=== PATIENT | male | born 1965 ===

== ENCOUNTER 2018-03-21 19:11 | Inpatient (IN) | payer MEDICAID, OTHER ==
[2018-03-21 19:12] VITALS: BMI 22.8
[2018-03-21 19:59] LABS: BASO # 0.1 K/uL (0.0-0.2); BASO % 1.8 % (0.0-2.0); EOS # 0.1 K/uL (0.0-0.7); EOS % 2.5 % (0.0-4.0); HEMOGLOBIN 11.5 g/dL (12.0-18.0); LYMPH # 1.1 K/uL (1.0-4.3); LYMPH % 26.1 % (20.0-40.0); MEAN CORPUSCULAR HEMOGLOBIN 31.5 pg (27.0-31.0); MEAN CORPUSCULAR HGB CONC 33.3 g/dL (33.0-37.0); MEAN PLATELET VOLUME 7.1 fL (7.2-11.7); MONO # 0.7 K/uL (0.0-0.8); MONO % 16.3 % (0.0-10.0); NEUT # 2.2 K/uL (1.8-7.0); NEUT % 53.3 % (50.0-75.0); NRBC % 0.1 % (0.0-2.0); RBC 3.65 Mil/uL (4.40-5.90); RED CELL DISTRIBUTION WIDTH 14.1 % (11.5-14.5); WHITE BLOOD COUNT 4.1 K/uL (4.8-10.8)
[2018-03-21 20:00] LABS: MEAN CELL VOLUME 94.7 fL (80.0-94.0)
[2018-03-21 20:17] LABS: SQUAMOUS EPITHIAL < 1 /hpf (0-5); URINE BACTERIA OCC (<OCC); URINE BILIRUBIN NEGATIVE (NEGATIVE); URINE CLARITY Clear (Clear); URINE COLOR Yellow (YELLOW); URINE GLUCOSE (UA) NORMAL (Normal); URINE HYALINE CAST 0-2 /lpf (0-2); URINE LEUKOCYTE ESTERASE NEG Leu/uL (Negative); URINE PROTEIN 3+ mg/dL (NEGATIVE); URINE UROBILINOGEN NORMAL mg/dL (0.2-1.0)
[2018-03-21 20:18] LABS: URINE BLOOD TRACE (NEGATIVE)
[2018-03-21 20:20] LABS: ALB/GLOB RATIO 1.2 (1.0-2.1); ALBUMIN 3.8 g/dL (3.5-5.0); CALCIUM 8.5 mg/dl (8.6-10.4)
[2018-03-21 20:38] LABS: BARBITURATES, UR NEGATIVE (NEGATIVE); BENZODIAZEPINES, UR NEGATIVE (NEGATIVE); OPIATES, UR NEGATIVE (NEGATIVE); PHENCYCLIDINE, UR NEGATIVE (NEGATIVE)
--- NOTE | 2018-03-21 22:52 | C.PDOC ---
History Of Present Illness 52 year old male presents to the ER with ETOH abuse and requesting detox. Patient is well known to this hospital system for ETOH abuse and offers no complaints at this time. He admits to drinking heavily today. Denies suicidal ideation or homicidal ideation. Hx may be unreliable due to intoxication. <Poonam Modi - Last Filed: 03/24/18 16:02> <Diane Alberts - Last Filed: 03/22/18 01:01> History Per: Patient History/Exam Limitations: no limitations Onset/Duration Of Symptoms: Days Current Symptoms Are (Timing): Still Present Suicide/Self Injury Attempted (Context): None Modifying Factor(s): Alcohol Involuntary Hold By: None Recent travel outside of the [place]: No <Poonam Modi - Last Filed: 03/24/18 16:02> Time Seen by Provider: 03/21/18 19:29 Chief Complaint (Nursing): Substance Abuse Past Medical History Vital Signs: Last Vital Signs Temp 98.1 F 03/21/18 19:26 Pulse 93 H 03/21/18 21:06 Resp 20 03/21/18 19:26 BP 130/78 03/21/18 21:06 Pulse Ox 95 03/21/18 22:58 - [facility] Procedures GROUP PSYCHOTHERAPY (05/10/17) INDIV PSYCHOTHERAPY FOR SUBSTANCE ABUSE, COGNITIV BEHAVIORAL (05/10/17) INDIVIDUAL PSYCHOTHERAPY, COGNITIVE-BEHAVIORAL (05/10/17) INJECT/INFUSE NEC (06/27/12) INTRODUCE LOCAL ANESTH IN PERIPH NRV, PLEXI, PERC (05/23/17) INTRODUCTION OF SERUM/TOX/VACCINE INTO MUSCLE, PERC APPROACH (06/30/16) REPAIR LEFT UPPER EYELID, EXTERNAL APPROACH (05/23/17) REPAIR RIGHT ANKLE BURSA AND LIGAMENT, OPEN APPROACH (05/23/17) REPOSITION RIGHT ANKLE JOINT WITH INT FIX, OPEN APPROACH (05/23/17) REPOSITION RIGHT FIBULA WITH INT FIX, OPEN APPROACH (05/23/17) REPOSITION RIGHT FIBULA, EXTERNAL APPROACH (05/23/17) <Diane Alberts - Last Filed: 03/22/18 01:01> Reviewed: Historical Data, Nursing Documentation, Vital Signs Vital Signs: Last Vital Signs Temp 98.1 F 03/21/18 19:26 Pulse 93 H 03/21/18 21:06 Resp 20 03/21/18 19:26 BP 130/78 03/21/18 21:06 Pulse Ox 95 03/21/18 21:06 - Medical History PMH: Fractures, HTN, Hypercholesterolemia Denies: Diabetes, Hepatitis, HIV, Chronic Kidney Disease, Seizures, Sexually Transmitted Disease - [facility] Procedures GROUP PSYCHOTHERAPY (05/10/17) INDIV PSYCHOTHERAPY FOR SUBSTANCE ABUSE, COGNITIV BEHAVIORAL (05/10/17) INDIVIDUAL PSYCHOTHERAPY, COGNITIVE-BEHAVIORAL (05/10/17) INJECT/INFUSE NEC (06/27/12) INTRODUCE LOCAL ANESTH IN PERIPH NRV, PLEXI, PERC (05/23/17) INTRODUCTION OF SERUM/TOX/VACCINE INTO MUSCLE, PERC APPROACH (06/30/16) REPAIR LEFT UPPER EYELID, EXTERNAL APPROACH (05/23/17) REPAIR RIGHT ANKLE BURSA AND LIGAMENT, OPEN APPROACH (05/23/17) REPOSITION RIGHT ANKLE JOINT WITH INT FIX, OPEN APPROACH (05/23/17) REPOSITION RIGHT FIBULA WITH INT FIX, OPEN APPROACH (05/23/17) REPOSITION RIGHT FIBULA, EXTERNAL APPROACH (05/23/17) Family History: States: Hypertension - Social History Hx Alcohol Use: Yes Hx Substance Use: No (As per pt) - Immunization History Hx Tetanus Toxoid Vaccination: Yes Hx Influenza Vaccination: No Hx Pneumococcal Vaccination: No <Poonam Modi - Last Filed: 03/24/18 16:02> Review Of Systems Constitutional: Negative for: Fever, Chills ENT: Negative for: Nose Discharge, Nose Congestion, Throat Pain Cardiovascular: Negative for: Chest Pain, Palpitations Respiratory: Negative for: Cough, Shortness of Breath Gastrointestinal: Negative for: Nausea, Vomiting Genitourinary: Negative for: Dysuria, Hematuria Neurological: Negative for: Weakness, Numbness <Poonam Modi - Last Filed: 03/24/18 16:02> Physical Exam - Physical Exam Appears: Other (Somewhat disheveled, Intoxicated) Skin: Warm, Dry Head: Atraumatic, Normacephalic Nose: Normal Lips: Normal Appearing Cardiovascular: Rhythm Regular, No Murmur Respiratory: Normal Breath Sounds, No Wheezing Gastrointestinal/Abdominal: Soft, No Tenderness Back: Normal Inspection, No Muscle Spasm Extremity: Normal ROM, No Deformity Neurological/Psych: Normal Motor, Normal Sensation, Other (Somewhat sleepy with slurred speech. No sensory deficits) <Poonam Modi - Last Filed: 03/24/18 16:02> ED Course And Treatment - Laboratory Results Result Diagrams: 03/21/18 19:54 03/21/18 19:54 <Diane Alberts - Last Filed: 03/22/18 01:01> - Laboratory Results Result Diagrams: 03/21/18 19:54 03/21/18 19:54 O2 Sat by Pulse Oximetry: 95 (Room air) Pulse Ox Interpretation: Normal <Poonam Modi - Last Filed: 03/24/18 16:02> Medical Decision Making Medical Decision Making: Impression: ETOH use disorder Crisis evaluation for possible detox. <Poonam Modi - Last Filed: 03/24/18 16:02> Disposition Discussed With DrMaster: Supa Siegel Comment: accepted the pt on his service and took over the care at 1:02AM Doctor Will See Patient In The: Hospital Counseled Patient/Family Regarding: Studies Performed, Diagnosis - Disposition Disposition Time: 01:00 - POA Present On Arrival: None <Diane Alberts - Last Filed: 03/22/18 01:01> <Poonam Modi Kirsty - Last Filed: 03/24/18 16:02> - Disposition Disposition: HOSPITALIZED Condition: FAIR - Clinical Impression Clinical Impression: Alcohol use disorder, severe, dependence - Scribe Statement The provider has reviewed the documentation as recorded by the Scribe Raul Jimenez All medical record entries made by the Scribe were at my direction and personally dictated by me. I have reviewed the chart and agree that the record accurately reflects my personal performance of the history, physical exam, medical decision making, and the department course for this patient. I have also personally directed, reviewed, and agree with the discharge instructions and disposition. <Poonam Modi - Last Filed: 03/24/18 16:02> Decision To Admit - Pt Status Changed To: Hospital Disposition Of: Inpatient - Admit Certification Admit to Inpatient:: After my assessment, the patient will require hospitalization for at least two midnights. This is because of the severity of symptoms shown, intensity of services needed, and/or the medical risk in this patient being treated as an outpatient. - InPatient: Physician Admission Certification: I certify that this patient requires 2 or more midnights of care for the following reason:: After my assessment, the patient will require hospitalization for at least two midnights. This is because of the severity of symptoms shown, intensity of services needed, and/or the medical risk in this patient being treated as an outpatient. - . Bed Request Type: Detox Admitting Physician: Supa Siegel <Diane Alberts - Last Filed: 03/22/18 01:01> <Poonam Modi - Last Filed: 03/24/18 16:02> - . Patient Diagnosis: Alcohol use disorder, severe, dependence
--- NOTE | 2018-03-22 01:51 | PCM.BM ---
<Jeramy Larios - Last Filed: 03/22/18 01:49> Treatment Plan Problems - Problems identified on initial assessmt potential for alcohol withdrawal Date Initiated: 03/22/18 Time Initiated: 01:49 Assessment reference: NA Status: Active Treatment assets and liabiliti Patient Assests: adapts well, cooperative, motivated, resourceful, self-reliant, ADL independent, negotiates basic needs, cognitively intact Patient Liabilities: substance abuse - Milieu Protocol Maintain good personal hygiene: daily Encourage regular showers, daily Remind patient to perform daily oral care, daily Assist patient to perform ADL's Maintain personal safety: every shift Educate patient to report safety concerns to staff, every shift Monitor environment for contraband/sharps Medication safety: Monitor for expected outcome, potential side effects: every shift, Assess barriers to learning: every shift, Assess readiness for medication education: every shift <Katie Buckner - Last Filed: 03/22/18 14:20> - Diagnosis (1) Alcohol use disorder, severe, dependence Status: Acute Interventions: 03/22/18 14:20 * Assess 7x/week regarding severity of withdrawal * Educate regarding risks, benefits, side effects and alternatives of medications * Use Motivational Interviewing for abstinence * Use CBT for relapse prevention * Medication management for withdrawal symptoms * Encourage medication assisted treatment * <Lina Wood - Last Filed: 03/23/18 13:40> Family Contact Family involvement: Famliy/SO not involved - Goals for Treatment Patient goals for treatment: Complete detox and transition to an outpatient counseling program. Discharge/Continuing Care - Education Needs Education Needs: Patient Medication, Patient Diagnosis/Disease Process, Patient Coping Skills, Patient Anger Management skills, Patient Placement options, Patient Community resources - Discharge Discharge Criteria: No longer exhibiting s/s of withdrawal, Reduction of target symptoms Discharge to:: Home - Treatment Team Participation Patient/Family/SO Statement: 03/23/18 13:40 "I wanna try [facility]..." Discussed with Family/SO: No Was Patient/Family/SO present at Treatment Team Meeting: Yes
--- NOTE | 2018-03-22 10:15 | RAD ---
HISTORY: clearance COMPARISON: Chest x-ray performed 04/06/16 TECHNIQUE: Chest, one view. FINDINGS: Examination limited by habitus and hypoinflation. LUNGS: No focal consolidation. Please note that chest x-ray has limited sensitivity for the detection of pulmonary masses. PLEURA: No significant pleural effusion identified. No definite pneumothorax . CARDIOVASCULAR: Heart size appears within normal limits. Atherosclerotic calcification present. OSSEOUS STRUCTURES: Degenerative changes. VISUALIZED UPPER ABDOMEN: Unremarkable. OTHER FINDINGS: None. IMPRESSION: No focal consolidation identified.
[2018-03-22] MEDS: Multiple Vitamins Tab PO SCH (10:16)
--- NOTE | 2018-03-22 11:05 | PCM.PSYCH ---
Initial Psychiatric Evaluation - Initial Psychiatric Evaluation Type of Admission: Voluntary Legal Status: Capacity Chief Complaint (in patient's own words): "Alcohol" History of Present Illness and Precipitating Events: The patient is seen, chart reviewed and case discussed. This is a 52-year-old male, single with no child, living with his girlfriend and sometimes he is homeless. Unemployed. The patient is unclear about how much he drinks and he keeps saying "a lot" and states that he starts drinking in the morning. He sometimes drinks up to 4 pints of rum and many beers he says. He started drinking when he was 11 and became a problem in his 20s. Despite that, this is his first detox and he has never been to rehabilitation. He denies current drug use but he used cocaine in the past. He smokes 10 cigarettes a day. He reports significant withdrawal symptoms from alcohol. No history of seizures but he may have had 1 DT. Past psych history: He was admitted one time when he was under the influence in emergency room he took some pills in front of staff at [facility]. Currently he states he still depressed but denies suicidal ideation adamantly. Medical history: High blood pressure, high cholesterol and heart disease. Due to his excessive drinking he had been noncompliant with his medications since March. Family psych history: Brother had alcohol problem Current Medications: Active Medications Generic Name Dose Route Start Last Admin Trade Name Freq PRN Reason Stop Dose Admin Chlordiazepoxide 25 mg 03/22/18 10:00 03/22/18 10:16 Librium PO 03/27/18 09:59 25 mg Q6H ARNOLDO Administration Taper Chlordiazepoxide 25 mg 03/22/18 08:48 Librium PO Q4H PRN Alcohol Withdrawal Clonidine HCl 0.1 mg 03/22/18 01:47 03/22/18 02:12 Catapres PO 0.1 mg Q6 PRN Administration Symptoms of alcohol withdrawl Dicyclomine HCl 10 mg 03/22/18 05:14 Bentyl PO Q6 PRN Muscle spasm Folic Acid 1 mg 03/22/18 10:00 03/22/18 10:16 Folic Acid PO 1 mg DAILY ARNOLDO Administration Hydroxyzine HCl 25 mg 03/22/18 01:23 03/22/18 02:12 Atarax PO 25 mg Q6 PRN Administration Anxiety Ibuprofen 600 mg 03/22/18 01:24 Motrin Tab PO Q6 PRN Pain, moderate (4-7) Multivitamins 1 tab 03/22/18 10:00 03/22/18 10:16 Hexavitamin PO 1 tab DAILY ARNOLDO Administration Ondansetron HCl 4 mg 03/22/18 05:15 Zofran Tab PO Q6 PRN Nausea/Vomiting Thiamine HCl 100 mg 03/22/18 10:00 03/22/18 10:15 Vitamin B1 Tab PO 100 mg DAILY ARNOLDO Administration Trazodone HCl 50 mg 03/22/18 22:00 Desyrel PO HS PRN Insomnia Past Psychiatric History - Past Psychiatric History Previous Treatment History: Inpatient Pertinent Medical Hx (Current Medical&Sleep Prob, Allergies): Allergies Allergy/AdvReac Type Severity Reaction Status Date / Time No Known Allergies Allergy Verified 03/21/18 19:30 Multivit-Minerals/Folic Acid [Centrum Multigummies] 1 tab PO DAILY 12/10/16 Acetaminophen [Acetaminophen 8 Hour] 650 mg PO Q6 PRN #30 tablet.er 10/07/17 Aspirin [Aspirin Chewable] 81 mg PO DAILY #30 ctb 10/07/17 Atorvastatin [Lipitor] 20 mg PO DAILY #30 tab 10/07/17 Carvedilol [Coreg] 3.125 mg PO Q12 #60 tab 10/07/17 Escitalopram [Lexapro] 5 mg PO DAILY #30 tab 10/07/17 Lisinopril [Zestril] 40 mg PO DAILY #30 tab 10/07/17 amLODIPine [Norvasc] 10 mg PO DAILY #30 tab 10/07/17 amLODIPine [Norvasc] 5 mg PO DAILY #10 tab 11/22/17 Review of Systems - Neurological Neurological: Tremor - Psychiatric Psychiatric: Abnormal Sleep Pattern, Anhedonia, Anxiety, Change in Appetite, Depression, Difficulty Concentrating, Irritability. absent: Hallucinations, Homicidal Ideation, Suicidal Ideation Mental Status Examination - Personal Presentation Personal Presentation: Looks older than stated age - Affect Affect: Constricted - Motor Activity Motor Activity: Calm - Reliability in Providing Information Reliability in Providing Information: Fair - Speech Speech: Organized - Mood Mood: Depressed, Anxious - Formal Thought Process Formal Thought Process: No Impairment - Cognitive Functions Orientation: Person, Place, Situation Sensorium: Alert Attention/Concentration: Attentive Estimate of Intelligence: Average Judgement: Intact, as evidence by: Insight regarding need for hospitalization Memory: Recent intact, as evidence by: Ability to recall events of the day, Remote intact, as evidenced by: Abilit to recall sig. life events - Risk Risk: Withdrawal, Diminished functioning - Strength & Assets Inventory Strength & Assets Inventory: Cooperative - Limitations Limitations: Living alone DSM 5 DX - DSM 5 DSM 5 Diagnosis: Alcohol withdrawal Alcohol use disorder, severe Depressive disorder, unspecified - Recommended/Plan of Treatment Treatment Recommendations and Plan of Treatment: Taper with Librium Remeron for depression Resume blood pressure meds but with low doses for now Gabapentin for augmentation if needed As needed medications All risks, benefits and alternatives of the meds discussed, and the pt agreed and understood. Attend groups and activities Supportive therapy and psychoeducation [facility] for abstinence CBT for relapse prevention Encourage MAT Refer to rehab or IOP, and self-help groups Teach healthy lifestyle methods, i.e. diet, exercise, meditation Smoking cessation with [facility] Nicotine patch if needed 34 min Projected ELOS: 4 days Prognosis: Good with treatment - Smoking Cessation Smoking Cessation Initiated: Yes
--- NOTE | 2018-03-22 12:19 | CARD ---
APPROVED REPORT Date of service: 03/21/2018 EKG Measurement Heart [id number] <Conclusion> Normal sinus rhythm Possible Left atrial enlargement Left ventricular hypertrophy Nonspecific T wave abnormality Abnormal ECG
[2018-03-23] MEDS: Multiple Vitamins Tab PO SCH (09:44)
--- NOTE | 2018-03-23 14:25 | PCM.PYCHPN ---
Psychiatric Progress Note - Psychiatric Progress Note Patient seen today, length of contact: 16 min Patient Chief Complaint: "Not well" Problems Identified/Issues Discussed: The pt is seen, chart reviewed, case discussed with staff. Support and psychoeducation given, CBT and IL used briefly No new symptoms reported, improving slowly and needs more time No SEs from medications, risks discussed. After care discussed Medication Change: Yes (detox changes daily) Medical Record Reviewed: Yes Mental Status Examination - Cognitive Function Orientation: Person, Place, Situation Memory: Intact Attention: Poor Concentration: Poor Association: WNL Fund of Knowledge: Poor - Mood Mood: Depressed, Anxious - Affect Affect: Constricted - Speech Speech: Appropriate - Formal Thought Process Formal Thought Process: No Impairment - Suicidal Ideation Suicidal Ideation: No - Homicidal Ideation Homicidal Ideation: No Goal/Treatment Plan - Goal/Treatment Plan Need for Continued Stay: Discharge may exacerbated symptoms, Severe functional impairment Progress Toward Problem(s) and Goals/Treatment Plan: Taper with Librium Remeron for depression Resume blood pressure meds but with low doses for now Gabapentin for augmentation if needed As needed medications All risks, benefits and alternatives of the meds discussed, and the pt agreed and understood. Attend groups and activities Supportive therapy and psychoeducation [place] for abstinence CBT for relapse prevention Encourage MAT Refer to rehab or IOP, and self-help groups Teach healthy lifestyle methods, i.e. diet, exercise, meditation Smoking cessation with [place] Nicotine patch if needed
[2018-03-24] MEDS: Multiple Vitamins Tab PO SCH (09:17)
--- NOTE | 2018-03-24 12:11 | PCM.PYCHPN ---
Psychiatric Progress Note - Psychiatric Progress Note Patient seen today, length of contact: 16 min Patient Chief Complaint: "Not well" Problems Identified/Issues Discussed: The pt is seen, chart reviewed, case discussed with staff. Support and psychoeducation given, CBT and MT used briefly No new symptoms reported, improving slowly and needs more time No SEs from medications, risks discussed. After care discussed Medication Change: Yes (detox changes daily) Medical Record Reviewed: Yes Mental Status Examination - Cognitive Function Orientation: Person, Place, Situation Memory: Intact Attention: Poor Concentration: Poor Association: WNL Fund of Knowledge: Poor - Mood Mood: Depressed, Anxious - Affect Affect: Constricted - Speech Speech: Appropriate - Formal Thought Process Formal Thought Process: No Impairment - Suicidal Ideation Suicidal Ideation: No - Homicidal Ideation Homicidal Ideation: No Goal/Treatment Plan - Goal/Treatment Plan Need for Continued Stay: Discharge may exacerbated symptoms, Severe functional impairment Progress Toward Problem(s) and Goals/Treatment Plan: Taper with Librium Remeron for depression Resume blood pressure meds but with low doses for now Gabapentin for augmentation if needed As needed medications All risks, benefits and alternatives of the meds discussed, and the pt agreed and understood. Attend groups and activities Supportive therapy and psychoeducation MT for abstinence CBT for relapse prevention Encourage MAT Refer to rehab or IOP, and self-help groups Teach healthy lifestyle methods, i.e. diet, exercise, meditation Smoking cessation with MT Nicotine patch if needed
[2018-03-25] MEDS: Multiple Vitamins Tab PO SCH (09:03)
--- NOTE | 2018-03-25 09:18 | PCM.PYCHDC ---
Mental Status Examination - Mental Status Examination Orientation: Person Discharge Summary - Discharge Note Consultations:: List each consultation separately and include: 1. Reason for request. 2. Findings. 3. Follow-up Summary of Hospital Course include:: 1. Description of specific treatment plan utilized for patients during their course of treatmen. 2. Summarize the time- course for resolution of acute symptoms and/or regressed behaviors. 3. Describe issues identified and worked on during hospitalization. 4. Describe medication utilized. 5. Describe medical problems identified and treated. 6. Reassessment of suicide risk Summary of Hospital Course: The patient is seen, chart reviewed and case discussed. This is a 52-year-old male, single with no child, living with his girlfri end and sometimes he is homeless. Unemployed. The patient is unclear about how much he drinks and he keeps saying "a lot" and states that he starts drinking in the morning. He sometimes drinks up to 4 pints of rum and many beers he says. He started drinking when he was 11 and became a problem in his 20s. Despite that, this is his first detox and he has never been to rehabilitation. He denies current drug use but he used cocaine in the past. He smokes 10 cigarettes a day. He reports significant withdrawal symptoms from alcohol. No history of seizures but he may have had 1 DT. Past psych history: He was admitted one time when he was under the influence in emergency room he took some pills in front of staff at [facility]. Currently he states he still depressed but denies suicidal ideation adamantly. Medical history: High blood pressure, high cholesterol and heart disease. Due to his excessive drinking he had been noncompliant with his medications since March. Family psych history: Brother had alcohol problem He will go to [facility]. - Diagnosis (1) Alcohol use disorder, severe, dependence Current Visit: Yes Status: Acute - Final Diagnosis (DSM 5) Condition upon Discharge: FAIR Disposition: HOME/ ROUTINE Follow-up Treatment Plan: Taper with Librium Remeron for depression Resume blood pressure meds but with low doses for now Gabapentin for augmentation if needed As needed medications All risks, benefits and alternatives of the meds discussed, and the pt agreed and understood. Attend groups and activities Supportive therapy and psychoeducation [place] for abstinence CBT for relapse prevention Encourage MAT Refer to rehab or IOP, and self-help groups Teach healthy lifestyle methods, i.e. diet, exercise, meditation Smoking cessation with PA Nicotine patch if needed Prescriptions/Medication Reconciliation: amLODIPine [Norvasc] 10 mg PO DAILY #30 tab Aspirin [Aspirin Chewable] 81 mg PO DAILY #30 chew Atorvastatin [Lipitor] 20 mg PO DAILY #30 tab Lisinopril [Zestril] 5 mg PO DAILY #30 tab Mirtazapine [Remeron] 15 mg PO HS #30 tab traZODone [Desyrel] 50 mg PO HS PRN #30 tab PRN Reason: Insomnia
[2018-03-25 10:46] VITALS: PULSE 80; TEMP 97.4
[2018-03-25 10:48] VITALS: BP 150/78; RESP 20; O2SAT 98
== END 2018-03-25 10:45 | disposition home or self-care (01) | DRG 751 ==
LOC: C.ER 19:11 → C.7D 03-22 01:01
DX: F10.239 Alcohol dependence with withdrawal, unspecified (principal); I10 Essential (primary) hypertension; E78.00 Pure hypercholesterolemia, unspecified; F17.210 Nicotine dependence, cigarettes, uncomplicated; F32.9 Major depressive disorder, single episode, unspecified; Z91.14 Patient's other noncompliance with medication regimen